=== PATIENT | female | born 1955 ===

== ENCOUNTER 2019-10-23 07:15 | Inpatient (IN) | payer OTHER ==
[~2019-10-23] VITALS: Ht 162.6 cm; Wt 108.9 kg
[2019-10-23] MEDS ORDERED: TOPROL XL50 M1 PO (13:33)
[2019-10-23] MEDS ORDERED: SIMVASTAT PO (13:33)
[2019-10-26] MEDS ORDERED: SIMVASTATIN40 MG PO (16:32)
[2019-10-29] MEDS ORDERED: XARELTO10 MG PO (07:50)
[2019-10-29] MEDS ORDERED: OXYC1TAB9 PO (07:50)
[2019-10-29] MEDS ORDERED: BACTRIM DS TAB1 EACH PO (07:50)
[2019-10-29] MEDS ORDERED: INTEGRA PLUS C1 EACH PO (07:50)
== END 2019-10-29 09:22 | DRG 470 ==
LOC: O/R 10-26 06:00 → SURH 10-26 07:15 → O/R 10-26 08:30 → SURH 10-26 15:18
PROVIDERS: ADMIT Orthopaedic Surgery Sports Medicine; ATTEND Orthopaedic Surgery Sports Medicine
PROC: 0SRB0JZ Replacement of Left Hip Joint with Synthetic Substitute, Open Approach (ICD-10-PCS; principal; 2019-10-26 08:30)
DX: M16.12 Unilateral primary osteoarthritis, left hip (principal); I10 Essential (primary) hypertension